=== PATIENT | male | born 1970 | race Caucasian/White ===

== ENCOUNTER 2022-06-03 07:06 | Emergency (ER) | payer OTHER ==
[~2022-06-03] VITALS: Ht 185.4 cm; Wt 97.5 kg
--- NOTE | 2022-06-03 07:21 | NUR ---
JAYDEN C/O +SI PLAN TO OD, VOL PSYCH ADMIT. PT A/OX3. TOLERATING R/A WELL WITH NO SOB. PT AMBULATORY WITH STEADY GAIT. PT IN GOWN, BELONGINGS COLLECTED AND PLACED IN LOCKER. WANDED BY SECURITY. SAFETY MEASURES IN PLACE.
--- NOTE | 2022-06-03 07:25 | NUR ---
PT NOT ABLE TO COLLECT URINE SAMPLE AT THIS TIME; ENDORSED TO MORNING RN FOR ALISON.
[2022-06-03] MEDS ORDERED: OLANZAPINE 5 MG TABLET ONE (07:38)
--- NOTE | 2022-06-03 07:49 | NUR ---
PT REFUSED ZYPREXA PO; DR WEEKS MADE AWARE.
[2022-06-03 07:53] LABS: BASOPHILS % (AUTO) 0.3 % (0.0-2.0); EOSINOPHILS % (AUTO) 1.7 % (0.0-6.0); HEMATOCRIT 41 % (39-51); LYMPHOCYTES # (AUTO) 1.8 K/uL (0.8-4.8); LYMPHOCYTES % (AUTO) 19.9 % (20.0-44.0); MEAN CORPUSCULAR HGB CONC 34 g/dl (31.0-36.0); MEAN CORPUSCULAR VOLUME 87 fL (80-96); MONOCYTES # (AUTO) 0.8 K/uL (0.1-1.30); MONOCYTES % (AUTO) 8.3 % (2.0-12.0); NEUTROPHILS # (AUTO) 6.3 K/uL (1.8-8.9); NEUTROPHILS % (AUTO) 69.8 % (43.0-81.0); PLATELET COUNT (AUTO) 254 K/uL (150-450); WHITE BLOOD COUNT (AUTO) 9.1 K/uL (4.3-11.0)
[2022-06-03] MEDS ORDERED: OLANZAPINE 5 MG TABLET PO ONE (08:00)
[2022-06-03 08:22] LABS: CALCIUM, SERUM 8.6 mg/dL (8.5-10.1); CARBON DIOXIDE 28 mmol/L (21-32); CHLORIDE 103 mmol/L (98-107); CREATININE 1.1 mg/dL (0.6-1.3); GLUCOSE 100 mg/dL (74-106); POTASSIUM 3.4 mmol/L (3.5-5.1); SODIUM SERUM 140 mmol/L (136-145); UREA NITROGEN, BLOOD 19 mg/dL (7-18)
[2022-06-03 08:28] LABS: ALANINE AMINOTRANSFERASE 33 U/L (12-78); ALBUMIN 4.1 g/dL (3.4-5.0); ALCOHOL, BLOOD < 3 mg/dL (0-0); ALKALINE PHOSPHATASE 87 U/L (46-116); ASPARTATE AMINOTRANSFERASE 17 U/L (15-37); BILIRUBIN,DIRECT 0.2 mg/dL (0.0-0.2); BILIRUBIN,TOTAL 0.7 mg/dL (0.2-1.0); TOTAL PROTEIN, SERUM 7.5 g/dL (6.4-8.2)
[2022-06-03 08:37] LABS: ACETAMINOPHEN 0 ug/ml (10-30)
--- NOTE | 2022-06-03 10:46 | NUR ---
PT CLINICALS FAXED TO [facility]. AWAITING FEEDBACK FROM NURSING SUP
--- NOTE | 2022-06-03 11:07 | NUR ---
SS consult requested for suicidal ideation and possible homelessness. Pt. is a 52-year-old male who was admitted to [facility] on 06/03/2022 due to medical clearance. Upon SS consult, pt. is alert and oriented x4. Pt. presents with an anxious mood and appears unkempt. Pt. presents with a normal thought process and was cooperative throughout the interview. Pt. provided appropriate eye contact. Upon SS consult, pt. is alert and oriented x4. Pt. stated he was having thoughts of suicide. Pt. stated he does not have a current plan. Pt. denied homicidal ideation. Pt. denied current visual and auditory hallucinations. Pt. stated he is diagnosed with major depressive disorder and anxiety. Pt. stated he does not currently take any medication. Pt. stated he sees a psychiatrist occasionally. communications planner offered pt. mental health resources and pt. accepted them. communications planner explored pt.'s substance use history. Pt. stated "I am an addict." Pt. stated he uses methamphetamine and alcohol. Pt. stated he relapsed and did methamphetamine yesterday. communications planner offered pt. substance use resources and pt. accepted. Pt. stated that he is currently homeless. communications planner offered pt. homeless resources and pt. accepted. Plan: Upon Discharge, pt. stated he wanted to be discharged to [facility] [[address] [place] [id number]]. Pt. signed homeless waiver and it was placed I the chart. provided the pt. with the following homeless, substance use and mental health resources: Year-round shelters: [facility] [address] [place] [address] ; [facility] [address] [place] [address]; [facility] [id number] [facility]. [facility] [phone] Hygiene: [facility]: [address] [place] ; [facility] [address] [facility] ; [facility] [address] [place] . Food Resources: [place] [facility] at [facility]- [address] [place]; Meet Each Need with Dignity (MEND) [address] [facility]. [place]; [facility] [address] [facility]; [facility] [address] [facility]. Mental Health resources provided: [facility] [address] [place] [address] ; [facility] [facility] [address] [facility] [address], [place], [place] [phone] ; [facility] [address] [place], [place] [phone] ; [facility] [address] [place], [place] [phone] Healthcare Clinics: [facility] [address] [facility], [address] [place]. [place] ; [facility] [address] [facility] [address] [place] [address]; [facility] [address] [facility] [place] [phone] Substance Abuse resources provided included: [facility] Substance Abuse Self-Helpline ([facility]) ; [facility] [address] [facility] [place] [address] ; [facility] [address] [facility] [address] ; [facility] [address] [facility] [address] ; [facility] [address] [facility] [phone] ; [facility] [address] [place] [facility] [address] ; [facility] [address] [facility] [phone] ; [facility]stance [facility] ; [facility] ; [facility] [place]; [facility] [place]; [facility] Francesco Heardrik; [facility]; [facility]; [facility]; [facility]. [facility]; Alcoholics Anonymous -[facility]; Sh-Crug-Egwnttw ; Marijuana Anonymous -[facility]; Narcotics Anonymous www.na.org; Counseling[facility] [address] [facility] [place] [address] (Specializes in in-depth psychotherapy for emotional distress: anxiety, depression, interpersonal conflicts, life transitions, childhood abuse) [facility] [address] [place] [address] (Assist with solving problem marital difficulties, separation & divorce, aging parents, & grief, chronic & terminal illness) [facility] [address] [place] [address] (Deal with loss & grief, anxiety, marital difficulties) Homebound/Mental Health Services [address], [address] [place] [address] (Provide in-home mental services to people who are incapable of leaving their homes) [facility] Elder[facility] Senior [facility] Center [address] [place] [address] [facility] [address] [place] [address]
[2022-06-03 13:03] LABS: BILIRUBIN,URINE SMALL (NEGATIVE); COLOR,URINE DARK YELLOW (YELLOW); LEUKOCYTE ESTERASE ,URINE NEGATIVE (NEGATIVE); NITRITE, URINE NEGATIVE (NEGATIVE); PROTEIN,URINE NEGATIVE (NEGATIVE); UGLUCOSE NEGATIVE (NEGATIVE)
[2022-06-03 13:30] LABS: BACTERIA,URINE Few /HPF (None Seen); RBC,URINE 0-2 /HPF (0-2); SQUAMOUS EPITHELIAL CELL,UR Few /HPF (None Seen); WBC,URINE 0-2 /HPF (0-3)
[2022-06-03 13:31] LABS: MUCUS,URINE Moderate /LPF (None Seen)
[2022-06-03] MEDS ORDERED: LORAZEPAM 1 MG TABLET ONE (16:50)
--- NOTE | 2022-06-03 16:52 | NUR ---
pt complaining of anxiety- asked Dr Easton for Ativan, 1mg po given as ordered
--- NOTE | 2022-06-03 20:01 | NUR ---
ACCEPTED AT [facility] UNDER MD JACOBSON REPORT [phone]
--- NOTE | 2022-06-03 20:02 | NUR ---
PT WILL BE TRANSPORTED IN 30 TO 45 MINUTES TO [facility]IA [facility].
--- NOTE | 2022-06-03 20:09 | NUR ---
REPORT GIVEN TO [facility] FOR CONTINUATION OF CARE.
--- NOTE | 2022-06-03 22:13 | NUR ---
PATIENT BEING TRANSFERED TO PSYCH FACILITY VIA AMBULANCE.
[2022-06-03 22:14] VITALS: BP 130/78
[2022-06-08] MEDS ORDERED: LORAZEPAM 1 MG TABLET PO ONE (08:00)
== END 2022-06-03 22:13 ==
LOC: ER 07:11
DX: R45.851 Suicidal ideations (principal); Z20.822 Contact with and (suspected) exposure to COVID-19
CPT/HCPCS: 99285; 85025; 80048; 80076; 81001; 36415; 87426; 80143; 80320; 80307; C9803; G0480